=== PATIENT | female | born 1970 | race Two or more races ===

== ENCOUNTER 2018-05-16 09:00 | Day surgery (SDC) | payer OTHER ==
[~2018-05-16 09:00] MED LIST: ATENOLOL50 MG PO
[2018-05-16] MEDS ORDERED: ZITHROMAX500 MG PO (12:06)
[2018-05-16] MEDS ORDERED: DICLOFENAC POTA50 MG PO (12:06)
== END 2018-05-16 16:35 | disposition home or self-care (01) ==
LOC: CIR.AMB 09:00
DX: N84.0 Polyp of corpus uteri (principal)

== ENCOUNTER 2018-05-30 18:22 | Emergency (ER) | payer OTHER ==
[~2018-05-30] VITALS: Ht 149.9 cm; Wt 51.3 kg
[~2018-05-30 18:22] MED LIST changes: +DICLOFENAC POTA50 MG PO; +ZITHROMAX500 MG PO
[2018-05-30] MEDS ORDERED: TERCONAZOLE80 MG VAG (22:20)
[2018-05-30] MEDS ORDERED: FLUCONAZOLE150 MG PO (22:20)
[2018-05-30] MEDS ORDERED: FLAGYL500MG PO (22:20)
[2018-05-30] MEDS ORDERED: INTESTINEX680 M1 PO (22:20)
== END 2018-05-30 22:26 | disposition home or self-care (01) ==
LOC: ER 18:22
DX: N76.0 Acute vaginitis (principal); B37.3 Candidiasis of vulva and vagina